=== PATIENT | male | born 1980 | race Caucasian/White ===

== ENCOUNTER 2022-03-30 15:01 | Outpatient (REF) | payer MEDICAID, SELFPAY ==
--- NOTE | ~2022-03-30 | US_ITS ---
EXAMINATION: US SCROTUM CLINICAL INFORMATION: Scrotal cyst. COMPARISON: Scrotal ultrasound 06/15/2013. TECHNIQUE: A sonogram of the scrotum was performed assessing garcia-scale appearance and color Doppler flow. Spectral Doppler analysis of the arterial and venous flow were performed in the testes bilaterally. FINDINGS: RIGHT: Right testicle measures 4.6 x 2.3 x 3.3 cm, volume 17.9 mL. There is microlithiasis. Spectral Doppler analysis of the arterial and venous flow is normal in the right testis. Right epididymal head is normal in size. A 7 mm right epididymal head cyst versus spermatocele is seen. Within the right epididymal tail, a 2.1 x 1.2 x 1.3 cm cyst is seen. Previously, this measured 1.5 x 0.8 x 0.8 cm No right varicocele is seen. Right epididymal Doppler flow is normal. A small hydrocele is seen. LEFT: Left testicle measures 4.9 x 2.0 x 2.8 cm, volume 14.2 mL. There is microlithiasis. Spectral Doppler analysis of the arterial and venous flow is normal in the left testis. The left testis is noted. Left epididymal head is normal in size. No left varicocele is seen. Left epididymal Doppler flow is normal. A small hydrocele is seen. US/US scrotum IMPRESSION: 1. Right epididymal head and tail cysts are seen, with dimensions as detailed above. 2. There are small bilateral hydroceles. 3. Testicular microlithiasis is present without intratesticular mass or other worrisome findings. In the absence of any other risk factors for testicular cancer (e.g., personal history of testicular cancer, a father or brother with testicular cancer, history of cryptorchidism or maldescent, testicular atrophy, or other risk factors), no further imaging or biochemical follow-up is necessary; all that is recommended is routine monthly testicular self-examination. However, if the patient has risk factors for testicular cancer, referral to a urologist for evaluation and determination of an optimal follow-up strategy is recommended. 4. No testicular mass or torsion is seen bilaterally.
== END 2022-03-30 15:02 | disposition home or self-care (01) ==
LOC: HO.US 15:01
PROVIDERS: Visit Provider Registered Nurse
DX: L72.9 Follicular cyst of the skin and subcutaneous tissue, unspecified (principal)
CPT/HCPCS: 76870

== ENCOUNTER 2022-10-15 10:29 | Outpatient (REF) | payer MEDICAID, SELFPAY ==
[2022-10-19 17:08] LABS: Lyme Abs Screen <0.90 index
== END 2022-10-15 10:30 | disposition home or self-care (01) ==
LOC: HO.HHCL 10:29
PROVIDERS: Visit Provider Internal Medicine Geriatric Medicine
DX: R21 Rash and other nonspecific skin eruption (principal)
CPT/HCPCS: 36415; 86617; 86618

== ENCOUNTER 2024-03-01 14:44 | Outpatient (REF) | payer MEDICAID, SELFPAY ==
[2024-03-01 15:49] LABS: Hemoglobin 12.2 g/dl (14.0-18.0); Mean Corpuscular Hemoglobin 28.4 pg (27.0-33.0); Platelet Count 213 X10*3/uL (160-400); Red Cell Distribution Width 12.3 % (11.0-16.0); White Blood Count 4.7 X10*3/uL (4.8-10.8)
[2024-03-01 15:52] LABS: Estimated Average Glucose 103 mg/dL; Hemoglobin A1C 105.8079 umol/L; Hemoglobin A1c % 5.2 % (<6.0)
[2024-03-01 16:23] LABS: Alanine Aminotransferase 30 U/L (0-40); Albumin Level 4.3 g/dL (3.5-5.0); Anion Gap 10 (12-20); Aspartate Amino Transferase 27 U/L (5-37); Bilirubin Total 0.1 mg/dL (0.0-1.0); Blood Urea Nitrogen 14 mg/dL (9-16); Calcium 9.1 mg/dL (8.4-10.2); Carbon Dioxide 31 mmol/L (22-29); Chloride 103 mmol/L (96-108); Estimated Glomerular Filt Rate > 60; Glucose Random 91 mg/dL (60-115); Sodium 140 mmol/L (135-145); Total Protein 7.4 g/dL (6.5-8.0)
[2024-03-01 16:30] LABS: Phenytoin Dilantin 16.6 ug/mL (10.0-20.0)
[2024-03-01 16:32] LABS: Alanine Aminotransferase 27 U/L (0-40); Albumin Level 4.3 g/dL (3.5-5.0); Alkaline Phosphatase 75 U/L (39-117); Aspartate Amino Transferase 26 U/L (5-37); Bilirubin Direct < 0.2 mg/dL (0.0-0.5); Bilirubin Total 0.1 mg/dL (0.0-1.0); Total Protein 7.4 g/dL (6.5-8.0)
[2024-03-01 16:43] LABS: TSH reflex Free T4 0.68 uIU/mL (0.32-4.0)
[2024-03-01 17:42] LABS: Alkaline Phosphatase 74 U/L (39-117)
[2024-03-01 18:55] LABS: CT PCR NOT DETECTED (Not Detect.); NG PCR NOT DETECTED (Not Detect.)
[2024-03-02 08:03] LABS: Syphilis Screen Nonreactive (Nonreactive)
[2024-03-02 08:25] LABS: HBS Num1 835.78 mIU/mL (0-7.99); HBsAGNum1 0.37 S/CO (0.00-0.99); HIV AB/AG Nonreactive (Nonreactive); HIV Num 1 0.07 S/CO (0.00-0.99); Hepatitis B Core Antibody Nonreactive (Nonreactive); Hepatitis B Surface Antigen Negative (Negative); ~HepC Num1 0.12 S/CO (0.00-0.79); ~Hepatitis B Surface Antibody REACTIVE (Nonreactive); ~Hepatitis C Antibody Nonreactive (Nonreactive)
== END 2024-03-01 14:45 | disposition home or self-care (01) ==
LOC: HO.LAB 14:44
PROVIDERS: Student in an Organized Health Care Education/Training Program; Visit Provider Psychiatry & Neurology Neurology
DX: Z00.00 Encounter for general adult medical examination without abnormal findings (principal); R56.1 Post traumatic seizures
CPT/HCPCS: 36415; 80053; 80076; 80185; 82248; 83036; 84443; 85027; 86704; 86706; 86780; 86803; 87340; 87389; 87491; 87591

== ENCOUNTER 2024-03-13 16:21 | Outpatient (REF) | payer MEDICAID, SELFPAY ==
--- NOTE | ~2024-03-13 | XR_ITS ---
EXAMINATION: XR SCREENING FILM FOR MR HISTORY: PRE MRI SKULL, R/O FB COMPARISON: There are no prior studies for comparison. FINDINGS: AP and lateral views of the orbits are submitted. Numerous metallic fragments are noted in the region of the left orbit. Additional metallic fragments are seen in the left parietal region. The patient is status post left craniotomy. Postsurgical changes are also noted involving the left orbit. The visualized paranasal sinuses are clear. XR/XR pre mri screening IMPRESSION: Numerous metallic foreign bodies in the region of the left orbit. Electronically signed by: Fercho Miranda MD 03/15/2024 08:57 AM EST
== END 2024-03-13 16:22 | disposition home or self-care (01) ==
LOC: HO.XRAY 16:21
PROVIDERS: PCP Student in an Organized Health Care Education/Training Program; Visit Provider Student in an Organized Health Care Education/Training Program
DX: Z13.89 Encounter for screening for other disorder (principal)

== ENCOUNTER 2024-06-20 15:47 | Outpatient (REF) | payer MEDICAID, SELFPAY ==
--- NOTE | ~2024-06-20 | CT_ITS ---
CLINICAL HISTORY: BRAIN FOG CT head without contrast Comparison: None Findings: There is artifact related to surgical hardware in the left posterior parietal cortex. There is left temporal lobe encephalomalacia underlying craniotomy defect. No intra-axial mass, midline shift, hydrocephalus, or acute hemorrhage. No significant atrophy-like change or white matter disease. There is no sinus or mastoid fluid. The orbits are within normal limits. No skull fracture. IMPRESSION: 1. No acute intracranial findings. This document has been electronically signed by: John Aburto MD on 06/22/2024 08:23:01
== END 2024-06-20 15:48 | disposition home or self-care (01) ==
LOC: HO.CT 15:47
PROVIDERS: PCP Nurse Practitioner Primary Care; Visit Provider Nurse Practitioner Primary Care
DX: S06.9XAS Unspecified intracranial injury with loss of consciousness status unknown, sequela (principal); R56.1 Post traumatic seizures; R41.89 Other symptoms and signs involving cognitive functions and awareness
CPT/HCPCS: 70450

== ENCOUNTER → 2024-06-20 15:50 | Outpatient (BNV) | payer MEDICAID, SELFPAY | PROVIDERS: PCP Nurse Practitioner Primary Care; Visit Provider Specialist | DX: R41.840 Attention and concentration deficit (principal) | CPT/HCPCS: 70450 ==

== ENCOUNTER 2024-07-18 12:34 | Outpatient (REF) | payer MEDICAID, SELFPAY ==
--- OUTSIDE RECORDS SUMMARY | 2024-07-18 12:57 | XMS_ITS | Encounter Summary ---
Author Organization [employer] Address [address] [place] [address] Care Team Providers Care Classroom Instructional Aide Name Role Phone Linh Melendez MD Primary Care Pro vider Reason for Referral * Consultation (Routine) - Pending Review Specialty Diagnoses / Procedures Referred By Yosef davis Referred To Contact Podiatry Diagnoses Ingrowing nail Linh Melendez MD [address] [place] [phone] Phone: tel: fax: Referral ID Status Reason Start Date Expiration Date Visits Requested Visits Authorized [id number] Pending Review Specialty Services Required 07/18/2024 07/18/2025 1 1 Encounter Details Date Type Department Care Team (Late st Contact Info) Description 07/18/2024 11:30 AM EDT Office Visit [facility] [address] [place] [address] [phone] Linh Melendez MD [address] [place] [address] [phone] Iron deficiency anemia, unspecified iron deficiency anemia type (Primary Dx); 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 I have lakeshia xavier 07/11/[address] you li ve. Do you have problems with any of the following? None of the above 07/11/2024 Food Insecurity Answer Date Recorded Within the past 12 months, y ou worried that your food would run out before you got money to buy more: Never True 07/11/2024 Within the past 12 months,th e food you bought just didn't last and you didn't have enough money to get more: Never True 09/2024 Transportation Answer Date Recorded In the past 12 months, has l ack of transportation kept you from medical appts, meetings, work or from getting things needed for daily living? No 12/30/2023 Utilities Answer Date Recorded In the past 12 months, has t he electric, gas, oil or water company threatened to shut off services in your home? No 07/11/2024 Depression Answer Date Recorded Patient Health Questionnaire-2 Score 3 01/11/2024 Internet Access Answer Date Recorded Internet Access Q1 Yes 12/30/2023 Internet Access Q2 Not on file 12/30/2023 Sex and Gender Information Value Date Recorded Sex Assigned at Male 01/04/2022 10:15 AM EDT Legal Sex Male 10:15 AM EDT Gender Identity Choose not to disclose 10:15 AM EDT Sexual Orientation Straight 01/04/2022 10 :15 AM EDT documented as of this encounter Last Filed Vital Signs Vital Sign Reading Time Taken Comments Blood Pressure 121/79 07/18/2024 11:51 AM EDT Pulse 88 07/18/2024 11:51 AM EDT Temperature 36.6 ??C (97.8 ??F) 07/18/2024 11:51 AM E DT Respiratory Rate 20 07/18/2024 11:51 AM EDT Oxygen Saturation - - Inhaled Oxygen Concentration - - Weight 72.1 kg (159 lb) 07/18/2024 11:51 AM EDT Height 188 cm (6' 2 ) 07/18/2024 11:51 AM EDT Body Mass Index 20.41 07/18/2024 11:51 AM EDT documented in this encounter Plan of Treatment Scheduled Orders Name Type Priority Associated Diagnoses Orde r Schedule CBC Lab Routine Iron deficiency anemia, unspecified iron deficiency anemia type Expected: 07/18/2024 (Approximate), Expires: 07/18/2025 Ferritin Lab Routine Iron deficiency anemia, unspecified iron deficiency anemia type Expected: 07/18/2024 (Approximate), Expires: 07/18/2025 Iron And Total Iron Binding Capacity Lab Routine Iron deficiency anemia, unspecified iron deficiency anemia type Expected: 07/18/2024 (Approximate), Expires: 07/18/2025 Vitamin B12 (Cobalamin) and Folate Panel, Serum Lab Routine Iron deficiency anemia, unspecified iron deficiency anemia type Expected: 07/18/2024 (Approximate), Expires: 07/18/2025 Urinalysis, Complete, with Reflex to Culture Lab Routine Iron deficiency anemia, unspecified iron deficiency anemia type Expected: 07/18/2024 (Approximate), Expires: 07/18/2025 Scheduled Referrals Name Type Priority Associated Diagnoses Orde r Schedule Referral to Podiatry Outpatient Referral Routine Ingrowing nail Expected: 07/18/2024 (Approximate), Expires: 07/18/2025 documented as of this encounter Visit Diagnoses Diagnosis Iron deficiency anemia, unspecified iron deficiency anemia type- Primary 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
--- OUTSIDE RECORDS SUMMARY | 2024-07-18 12:57 | XMS_ITS | Encounter Summary ---
Author Organization [employer] Address [address] [place] [address] Care Team Providers Care Cafe Cook Name Role Phone Linh Melendez MD Primary Care Pro vider Reason for Visit * Reason Onset Date Comments CHART PREP 07/17/2024 Encounter Details Date Type Department Care Team ([facility] st Contact Info) Description 07/17/2024 Telephone [facility] [address] [place], [place] [phone] Linh Melendez MD [address] [place], [place] [phone] CHART PREP Social History Tobacco Use Types Packs/Day Years Used Date Smoking Tobacco: Never Smokeless Tobacco: Never Alcohol Use Standard Drinks/Week Comments Never 0 (1 standard drink = 0.6 oz pur e alcohol) Depression Answer Date Recorded Patient Health Questionnaire-9 Score 12 01/11/2024 Patient Health Questionnaire-9 Score 12 01/11/2024 Last PHQ-9: Questionnaire Data Not on file 1 03/12/2023 Housing Stability Answer Date Recorded What is your housing situation today? I have lakeshiaprince xavier 07/11/[address] you [...] AM EDT documented as of this encounter Miscellaneous Notes * Telephone Encounter - Arsh Kendrick [place] - 07/17/2024 12:05 PM EDT Chart Prep Labs: done from 03/01/24 Images: done CT Head 06/20/24 Referrals: not applicable Vaccines due: Covid and DTAP Screenings: not applicable Overdue care gaps: SBIRT and Disability screen documented in this encounter Plan of Treatment Not on file documented as of this encounter Visit Diagnoses Not on filedocumented in this encounter Additional Health Concerns Assessment Noted Time PHQ-9 Depression Total Score: 12 024 3:04 PM EST documented as of this encounter Care Teams Cafe Cook Relationship Specialty Start Date End Date Linh Melendez MD [address] [place] [phone] PCP - General Internal Medicine 11/25/22 documented as of this encounter
--- OUTSIDE RECORDS SUMMARY | 2024-07-18 12:57 | XMS_ITS | Clinical Summary ---
Demographics Address [address] [place] [address] Work Phone Mobile Phone Home Phone Email Address Preferred Language en Marital Status Single Gnosticist Affiliation Unknown Race Other Race Ethnic Group Unknown Author Organization [employer] Address [address] [facility] [address] [place] [address] Care Team Providers Care Jointer Machine Name Role Phone Linh Melendez MD Primary Care Pro vider Allergies No known active allergies Medications * This document contains information received from the source organization and may not represent a complete record from that organization. phenytoin ER (Dilantin) 100 MG capsuleIndicati ons:Seizures (CMS/HCC) TAKE 2 CAPSULES BY MOUTH TWICE DAILY 120 capsule 02/08/2024 Active folic acid (Folvite) 1 MG tabletIndicatio ns:Seizures (CMS/HCC) TAKE 1 TABLET BY MOUTH IN THE MORNING 90 tablet 05/21/2024 Active Active Problems Problem Noted Date Diagnosed Date Depression with anxiety 01/12/2024 Brain fog 01/12/2024 Routine health maintenance 06/09/2022 Assessment & Plan (06/09/2022 4:39 PM EDT): He never had his labs drawn from his annual exam. We spoke about this and he acknowledged that he would have them drawn tomorrow morning while fasted. 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 Patient reports not having a seizure since 2007. He states that he was seeing the neurologist at [facility] but he cant remember the last time he saw them. The last blood work he had done at [facility] was 2019. F/up 9 months for annual exam Traumatic brain injury 05/18/2012 Resolved Problems Problem Noted Date Diagnosed Date Resolved Date Anemia 07/04/2012 01/12/2024 Encounters Date Type Department Care Team Description 07/18/2024 11:30 AM EDT Office Visit [facility] [address] [place] [phone] Linh Melendez MD Iron deficiency anemia, unspecified iron deficiency anemia type (Primary Dx); Seizure after head injury ([facility]); Ingrowing nail 07/17/2024 Telephone [facility] [address] [place] [phone] Linh Melendez MD CHART PREP 07/11/2024 Patient Outreach [facility] [address] [place] [phone] Linh Melendez MD Pre-visit Planning (SDOH screening negative and tobacco screening negative) 06/26/2024 Telephone [facility] [address] [place] [phone] Melina Hoyos, RN Results 05/18/2024 Refill [facility] [address] [place] [phone] Nannette Ortiz MD Seizures ([facility]/HCC) 05/18/2024 Population Health Risk Score [facility] () Department [address] [place] [phone] Provider, Population Health Generic 05/17/2024 Telephone [facility] [address] [place] [phone] Linh Melendez MD May recall from Last 3 Months Immunizations Immunization Administration Dates Next Due DTP 02/02/1990, 8,10/30/1986,04/08 Hep B, adult 05/06/1998,11/28/1996 Influenza, Split (incl. yariel fied surface antigen) 11/21/2012 MMR 02/22/1995,04/08/1986 OPV, Trivalent 02/03/1988, 8,10/30/1986,04/08 Pneumococcal Polysaccharide PPSV23 05/18/2012 TD (adult), 2 Lf tetanus tox oid, preservative free, adsorbed 05/06/1998,09/13/1991 Tdap 11/21/2012 Social History Tobacco Use Types Packs/Day Years [...] Orientation Straight 01/04/2022 10 :15 AM EDT Last Filed Vital Signs Vital Sign Reading Time Taken Comments Blood Pressure 121/79 07/18/2024 11:51 AM EDT Pulse 88 07/18/2024 11:51 AM EDT Temperature 36.6 ??C (97.8 ??F) 07/18/2024 11:51 AM E DT Respiratory Rate 20 07/18/2024 11:51 AM EDT Oxygen Saturation 100% 01/11/2024 2:10 PM EST Inhaled Oxygen Concentration - - Weight 72.1 kg (159 lb) 07/18/2024 11:51 AM EDT Height 188 cm (6' 2 ) 07/18/2024 11:51 AM EDT Body Mass Index 20.41 07/18/2024 11:51 AM EDT Plan of Treatment Health Maintenance Due Date Last Done Comments Family Planning (PISQ) 1997 DTaP/Tdap/Td Vaccines (6 - Td or Tdap) 11/21/2022 11/21/2012, 05/06/1998, 09/13/1991, Additional history exists COVID-19 Vaccine ( season) 2023 Influenza Vaccine (#1) 2023 11/21/2012 Depression Screening 01/10/2025 01/11/2024, 01/11/20 24 SDOH Screening 07/11/2025 07/11/2024 Alcohol/Substance Use Screening 07/18/2025 07/18/2024 Tobacco Screening 07/18/2025 07/18/2024 Lipid Panel 08/27/2027 08/26/2022 Zoster Vaccines (1 of 2) 2032 RSV Patients and Patients Aged 60 years or older (1 - 1-dose 75+ series) 2057 IPV Vaccines Completed 02/03/1988, 09/1987, 10/30/1986, Additional history exists Hepatitis B Vaccines Completed 05/06/1998, 11/28/18 97 Pneumococcal Vaccine: Pediatrics (0 to 5 Years) and At-Risk Patients (6 to 49) Years) Aged Out 05/18/2012 No longer eligible based on patient's age to complete this topic HIV Screening Completed 03/01/2024, 08/26/2022 Hepatitis C Screening Completed 03/01/2024, 023 HIB Vaccines Aged Out No longer eligi ble based on patient's age to complete this topic HPV Vaccines Aged Out No longer eligi ble based on patient's age to complete this topic Hepatitis A Vaccines Aged Out No long er eligible based on patient's age to complete this topic Meningococcal B Vaccine Aged Out No l onger eligible based on patient's age to complete this topic Meningococcal Vaccine Aged Out No melinda tushar eligible based on patient's age to complete this topic RSV under 20 months Aged Out No longe r eligible based on patient's age to complete this topic Rotavirus Vaccines Aged Out No longer eligible based on patient's age to complete this topic Procedures Procedure Name Priority Date/Time Associated Diagnosis Comments CT HEAD WO CONTRAST Routine 06/22/2024 8 :23 AM EDT Traumatic brain injury, with unknown loss of consciousness status, sequela (CMS/HCC) 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 [facility] ?[address] ?[place] [address] ? CT Scan Report ? Signed ? Patient: Colon,Tian ?MR#: [id number] ? : 1980 ?Acct:[id number] ? Age/Sex: 44 / M ?ADM Date: 04/16/25 ? Loc: HO.CT ? Attending Dr: Devon Mccarthy BINDING STITCHER ? Ordering Physician: DEVON MCCARTHY NP ?? Date of Service: 06/20/24 ?? Procedure(s): CT head/brain wo IV con ?? Accession Number(s): [id number] ? cc: DEVON MCCARTHY NP ? Report Number: ?? [id number]: Total DLP = ??857.00 mGy-cm ? CLINICAL HISTORY: BRAIN FOG ? CT head without contrast ? Comparison: None ? Findings: ?? There is artifact related to surgical hardware in the left posterior ?? parietal cortex. ?? There is left temporal lobe encephalomalacia underlying craniotomy defect. ?? No intra-axial mass, midline shift, hydrocephalus, or acute hemorrhage. ?? No significant atrophy-like change or white matter disease. ? There is no sinus or mastoid fluid. ?? The orbits are within normal limits. ?? No skull fracture. ? IMPRESSION: ?? 1. No acute intracranial findings. ? This document has been electronically signed by: John Aburto MD on ?? 06/22/2024 08:23:01 ? Dictated By: ?John Aburto MD ? Signed By: ?<Electronically signed by John Aburto MD in OV> ?06/22/24 0824 ? DD/ 2 ? TD/TT: 06/22/24822 ? Lye Boiler: ? Procedure Note Henri Peterson - 06/22/[address] [place] [address] [address] Scan Report Signed Patient: Shruti Santiago#: [id number] : 1980Acct:[id number] Age/Sex: 44 / MADM Date: 06/20/24 Loc: HO.CT Attending Dr: Devon Mccarthy NP Ordering Physician: DEVON MCCARTHY NP Date of Service: 06/20/24 Procedure(s): CT head/brain wo IV con Accession Number(s): [id number] cc: DEVON MCCARTHY NP Report Number: [id number]: Total DLP = 857.00 mGy-cm CLINICAL HISTORY: BRAIN FOG CT head without contrast Comparison: None Findings: There is artifact related to surgical hardware in the left posterior parietal cortex. There is left temporal lobe encephalomalacia underlying craniotomy defect. No intra-axial mass, midline shift, hydrocephalus, or acute hemorrhage. No significant atrophy-like change or white matter disease. There is no sinus or mastoid fluid. The orbits are within normal limits. No skull fracture. IMPRESSION: 1. No acute intracranial findings. This document has been electronically signed by: John Aburto MD on 06/22/2024 08:23:01 Dictated By: John Aburto MD Signed By: <Electronically signed by John Aburto MD in OV> 06/22/24823 DD/ 2 TD/TT: 06/22/24822 Lye Boiler: Devon ROA IMG CT PROCEDURES Edited Result - Final * Hepatitis C Antibody with Reflex to HCV, RNA, Quantitative, Real-Time PCR (03/01/2024 3:05 PM EST) Hepatitis C Antibody Nonreactive Nonreactive [facility] Comment:Antibodies to HCV no t detected; does not exclude early acuteHCV infection. Blood Venous blood specimen / Unknown 03/01/2024 3:05 PM EST 03/01/2024 3:10 PM EST Linh Kulkarni MD LAB BLOOD ORDERAB LES Final Result [facility] [address] [place] [phone] * HIV-1/2 Antigen and Antibodies, Fourth Generation, with Reflexes (03/01/2024 3:05 PM EST) HIV AB/AG Nonreactive Nonreactive [facility] Comment:HIV-1 p24 Ag and/or HIV-1/HIV-2 Ab not detected.A test result that is nonreactive does not exclude thepossibility of exposure to or infection with HIV-1 and/orHIV-2. Nonreactive results in this assay for individualswith prior exposure to HIV-1 and/or HIV-2 may be due toantigen and antibody levels that are below the limit ofdetection of this assay.The [employer] HIV Ag/Ab Combo assay result andsupplemental assay results should be interpreted inconjunction with the patient's clinical presentation,history and other laboratory results. If the results areinconsistent with clinical evidence, additional testing issuggested to confirm the result. Blood Venous blood specimen / Unknown 03/01/2024 3:05 PM EST 03/01/2024 3:10 PM EST Linh Kulkarni MD LAB BLOOD ORDERAB LES Final Result Performing Organization Address [facility]/ZIP Co de Phone Number [facility] [address] [place] [phone] [phone] * (ABNORMAL) Lipid Panel, Standard (08/26/2022 1:50 PM EDT) Cholesterol, Total 184 <200 mg/dL [facility] HDL Cholesterol 58 > OR = 40 mg/dL [facility] Triglycerides 131 <150 mg/dL [facility] LDL Cholesterol 103(H) mg/dL (calc) [facility] Comment: Reference range: <100 Desirable range <100 mg/dL for primary prevention; ?? <70 mg/dL for patients with CHD or diabetic patients with > or = 2 CHD risk factors. LDL-C is now calculated using the Devyn-Garcia calculation, which is a validated novel method providing better accuracy than the Friedewald equation in the estimation of LDL-C. Devyn SS et al. JOELLE. 2013;310(19): 6927-5907 (http://education.Personal Estate Manager/faq/QBH085) Chol/HDLC Ratio 3.2 <5.0 (calc) [facility] Non-HDL Cholesterol 126 <130 mg/dL (calc) [facility] Comment: For patients with diabetes plus 1 major ASCVD risk factor, treating to a non-HDL-C goal of <100 mg/dL (LDL-C of <70 mg/dL) is considered a therapeutic option. Blood Venous blood specimen / Unknown 08/26/2022 1:50 PM EDT 08/26/2022 1:50 PM EDT Narrative [facility] - 08/30/2022 10:27 AM EDT FASTING:NO FASTING: NO us Carlos [facility] LAB BLOOD ORDERABLES Final Res ult [facility] [address], [place] [phone] [facility] [address] [place] [phone] from Last 3 Months or Most Recently Relevant to Health Maintenance Insurance * Guarantor: Colon Tian Account Type Relation to Patient Date of Phone Billing Address Personal/Family Self [address] [place] [address] [facility] * Guarantor: Colon Tian Account Type Relation to Patient Date of Phone Billing Address Personal/Family Self [address] [place], [place] [facility] STANDARD * Guarantor: Colon, Tian Account Type Relation to Patient Date of Phone Billing Address [employer] Liability Self [address] [place] [address] * Guarantor: Colon, Tian Account Type Relation to Patient Date of Phone Billing Address Personal/Family Self [address] [place] [address] * Guarantor: Colon, Tian Account Type Relation to Patient Date of Phone Billing Address Personal/Family Self [address] [place] [address] * Guarantor: Tian Santiago Account Type Relation to Patient Date of Phone Billing Address Personal/Family Self [address] [place] [address] Care Teams Jointer Machine Relationship Specialty Start Date End Date Linh Melendez MD [address] [place] [phone] PCP - General Internal Medicine 11/25/22
[2024-07-18 16:15] LABS: Appearance Urine Turbid; Color Urine Dark Yellow; Glucose Urine UA Negative (Negative); Leukocyte Esterase Urine Negative (Negative); Nitrite Urine Negative (Negative); PH 5.5 (5.0-9.0); Specific Gravity - Urine >= 1.030 (1.005-1.025); UMIC TRIGGER UACC YES; Urine Blood Trace (Negative); Urine Ketones Trace mg/dL (Negative); Urine Protein Trace mg/dL (Neg-Trace)
[2024-07-18 16:20] LABS: Bacteria Urine None Seen (None Seen); Hematocrit 39.4 % (42.0-52.0); Hemoglobin 13.5 g/dl (14.0-18.0); Hyaline Casts Urine 0-2 /LPF (0-2); Mean Corpuscular HGB Conc 34.3 g/dl (31.0-36.0); Mean Corpuscular Hemoglobin 28.8 pg (27.0-33.0); Mean Corpuscular Volume 84.2 fL (80.0-98.0); Mean Platelet Volume 11.3 fL (9.4-12.4); Platelet Count 203 X10*3/uL (160-400); RBC Urine 0-2 /HPF (0-2); Red Blood Count 4.68 X10*6/uL (4.60-5.80); Squamous Epithelial Cell Urine 0-2 /HPF (0-2); WBC Urine 0-5 /HPF (0-5)
[2024-07-18 16:38] LABS: Iron 108 mcg/dL (45-160); Percent Iron Saturation 48 % (15-50); Total Iron Binding Capacity 223 mcg/dL (228-428); Unsaturated Iron Binding 115 ug/dL
[2024-07-18 16:53] LABS: Ferritin 140 ng/mL (20-250)
[2024-07-18 17:05] LABS: Folate > 20.0 ng/mL (> or = 4.0); Vitamin B12 361 pg/mL (200-900)
== END 2024-07-18 12:35 | disposition home or self-care (01) ==
LOC: HO.HHCL 12:34
PROVIDERS: Visit Provider Student in an Organized Health Care Education/Training Program
DX: D50.9 Iron deficiency anemia, unspecified (principal)
CPT/HCPCS: 36415; 81001; 82607; 82728; 82746; 83540; 85027